=== PATIENT | male | born 1960 | race Caucasian/White ===

== ENCOUNTER 2024-02-08 10:59 | Inpatient (IN) | payer MEDICARE, OTHER ==
[~2024-02-08] VITALS: Ht 172.7 cm; Wt 70.8 kg
[2024-02-08] MEDS ORDERED: DONE10TA44 PO (11:42)
[2024-02-08] MEDS ORDERED: ESCI20TA PO (11:42)
[2024-02-08] MEDS ORDERED: ALLO300T2 PO (11:42)
[2024-02-08] MEDS ORDERED: MAGN400O6 PO (11:42)
[2024-02-08] MEDS ORDERED: ATOR40TA PO (11:42)
[2024-02-08] MEDS ORDERED: CALC355O18 PO (11:42)
[2024-02-08] MEDS ORDERED: ACET-868 PO (11:42)
[2024-02-08] MEDS ORDERED: HALO5TAB PO (11:42)
[2024-02-08] MEDS ORDERED: MULT-213 PO (11:42)
[2024-02-08] MEDS ORDERED: CETI10TA14 PO (11:42)
[2024-02-08] MEDS ORDERED: BENZ1TAB7 PO (11:42)
[2024-02-08] MEDS ORDERED: DIVA-76 PO (11:42)
[2024-02-08] MEDS ORDERED: RIVA1.5C13 PO (11:42)
[2024-02-08] MEDS ORDERED: POLY17PO4 PO (11:42)
[2024-02-08] MEDS ORDERED: ICOS1CAP PO (11:42)
[2024-02-08] MEDS: IV NS 0.9% 1,000 ML BAG IV ONE (11:45)
[2024-02-08 12:00] LABS: BASOPHILS % (AUTO) 0.5 % (0.0-2.0); EOSINOPHILS # (AUTO) 0.2 K/uL (0.0-0.7); EOSINOPHILS % (AUTO) 2.6 % (0.0-6.0); HEMATOCRIT 42 % (39-51); LYMPHOCYTES % (AUTO) 13.6 % (20.0-44.0); MEAN CORPUSCULAR HEMOGLOBIN 30 PG (26.0-33.0); MEAN CORPUSCULAR HGB CONC 34 g/dl (31.0-36.0); MEAN CORPUSCULAR VOLUME 90 fL (80-96); MONOCYTES # (AUTO) 0.6 K/uL (0.1-1.30); MONOCYTES % (AUTO) 8.6 % (2.0-12.0); NEUTROPHILS # (AUTO) 5.6 K/uL (1.8-8.9); NEUTROPHILS % (AUTO) 74.7 % (43.0-81.0); PLATELET COUNT (AUTO) 172 K/uL (150-450); RED CELL DISTRIBUTION WIDTH 13.9 % (11.5-15.0); WHITE BLOOD COUNT (AUTO) 7.5 K/uL (4.3-11.0)
[2024-02-08 12:07] LABS: INR 1.06 (0.91-1.10); PARTIAL THROMBOPLASTIN TIME 24.5 SEC (24.3-34.3); PROTHROMBIN TIME 11.2 SECS (9.2-11.1)
[2024-02-08 12:15] LABS: CALCIUM, SERUM 9.7 mg/dL (8.5-10.1); CARBON DIOXIDE 28 mmol/L (21-32); CHLORIDE 103 mmol/L (98-107); CREATININE 0.8 mg/dL (0.6-1.3); GLUCOSE 86 mg/dL (74-106); POTASSIUM 3.9 mmol/L (3.5-5.1); SODIUM SERUM 140 mmol/L (136-145); UREA NITROGEN, BLOOD 24 mg/dL (7-18)
[2024-02-08 12:19] LABS: LACTIC ACID 0.8 mmol/L (0.4-2.0)
[2024-02-08 12:20] LABS: ALANINE AMINOTRANSFERASE 26 U/L (12-78); ALBUMIN 3.6 g/dL (3.4-5.0); ALKALINE PHOSPHATASE 96 U/L (46-116); ASPARTATE AMINOTRANSFERASE 21 U/L (15-37); BILIRUBIN,DIRECT 0.2 mg/dL (0.0-0.2); BILIRUBIN,TOTAL 1.3 mg/dL (0.2-1.0); TOTAL PROTEIN, SERUM 7.5 g/dL (6.4-8.2)
[2024-02-08 12:49] LABS: APPEARANCE,URINE CLEAR (CLEAR); BILIRUBIN,URINE NEGATIVE (NEGATIVE); BLOOD, URINE 2+ Ery/uL (NEGATIVE); COLOR,URINE YELLOW (YELLOW); KETONES,URINE 1+ mg/dL (NEGATIVE); LEUKOCYTE ESTERASE ,URINE NEGATIVE (NEGATIVE); NITRITE, URINE POSITIVE (NEGATIVE); PROTEIN,URINE TRACE mg/dl (NEGATIVE); UGLUCOSE NEGATIVE (NEGATIVE)
[2024-02-08 12:53] LABS: ADD URINE CULTURE YES; BACTERIA,URINE Few /HPF (None Seen); SQUAMOUS EPITHELIAL CELL,UR Few /HPF (None Seen); URINE AMORPHOUS URATE Moderate /HPF (None Seen)
[2024-02-08] MEDS: CEFTRIAXONE 1GM BAG (ER ONLY) 1 GM/50 ML PIGGYBACK IV ONE (13:40)
[2024-02-08] MEDS ORDERED: CEFTRIAXONE 1GM BAG (ER ONLY) 50 ML IV ONE (13:43)
[2024-02-08] MEDS ORDERED: Z GUARD REMEDY 4 OZ OINT TP PRN (15:00)
[2024-02-08] MEDS ORDERED: ONDANSETRON HCL/PF 4 MG/2 ML VIAL IVP PRN (15:00)
[2024-02-08] MEDS ORDERED: ZOLPIDEM TARTRATE 5 MG TABLET PO PRN (15:00)
[2024-02-08] MEDS ORDERED: ACETAMINOPHEN 325 MG TABLET PO PRN (15:00)
[2024-02-08] MEDS ORDERED: MAG HYDROX/AL HYDROX/SIMETH 30 ML UDC PO PRN (15:00)
[2024-02-08] MEDS ORDERED: MAGNESIUM HYDROXIDE 30 ML UDC PO PRN (15:00)
[2024-02-08 18:50] VITALS: BP 131/82; TEMP 97.5; O2SAT 100
[2024-02-08] MEDS: IV NS 0.9% 1,000 ML IV PRN (19:28)
[2024-02-08] MEDS: ENOXAPARIN SODIUM 40 MG/0.4 ML DISP.SYRIN SQ SCH (19:44)
[2024-02-08 20:00] VITALS: BP 120/79; TEMP 97.3; O2SAT 100
[2024-02-09 04:00] VITALS: BP 127/90; TEMP 98.2; O2SAT 100
[2024-02-09 08:00] VITALS: BP 125/76; TEMP 98.2; O2SAT 100
[2024-02-09 08:19] LABS: BASOPHILS % (AUTO) 0.5 % (0.0-2.0); EOSINOPHILS # (AUTO) 0.2 K/uL (0.0-0.7); EOSINOPHILS % (AUTO) 2.8 % (0.0-6.0); HEMATOCRIT 38 % (39-51); HEMOGLOBIN 12.7 g/dL (13.5-17.5); LYMPHOCYTES # (AUTO) 0.9 K/uL (0.8-4.8); LYMPHOCYTES % (AUTO) 11.9 % (20.0-44.0); MEAN CORPUSCULAR HEMOGLOBIN 30 PG (26.0-33.0); MEAN CORPUSCULAR HGB CONC 34 g/dl (31.0-36.0); MEAN CORPUSCULAR VOLUME 90 fL (80-96); MONOCYTES # (AUTO) 0.5 K/uL (0.1-1.30); MONOCYTES % (AUTO) 7.1 % (2.0-12.0); NEUTROPHILS # (AUTO) 5.6 K/uL (1.8-8.9); NEUTROPHILS % (AUTO) 77.7 % (43.0-81.0); PLATELET COUNT (AUTO) 162 K/uL (150-450); RED BLOOD CELL COUNT(AUTO) 4.21 MIL/uL (4.5-6.0); RED CELL DISTRIBUTION WIDTH 14.1 % (11.5-15.0); WHITE BLOOD COUNT (AUTO) 7.2 K/uL (4.3-11.0)
[2024-02-09 08:50] LABS: CALCIUM, SERUM 9.3 mg/dL (8.5-10.1); CREATININE 0.5 mg/dL (0.6-1.3); MAGNESIUM 1.9 mg/dL (1.8-2.4); PHOSPHORUS 2.6 mg/dL (2.5-4.9); POTASSIUM 3.6 mmol/L (3.5-5.1)
[2024-02-09] MEDS ORDERED: MAGNESIUM HYDROXIDE 30 ML UDC PO PRN (13:30)
[2024-02-09] MEDS ORDERED: cetrizine 10 MG TABLET PO PRN (13:30)
[2024-02-09] MEDS ORDERED: ACETAMINOPHEN 325 MG TABLET PO PRN (13:30)
[2024-02-09] MEDS: ATORVASTATIN 40 MG TABLET PO SCH (14:45)
[2024-02-09] MEDS: BENZTROPINE MESYLATE (1 MG) 1 MG TABLET PO SCH (14:45)
[2024-02-09] MEDS: CEFTRIAXONE 1 G in IV D5W 50 ML IV SCH (14:45)
[2024-02-09 16:00] VITALS: BP 119/86; TEMP 97.9; O2SAT 100
[2024-02-09] MEDS: DIVALPROEX SODIUM 250 MG TABLET.DR PO SCH (16:28)
[2024-02-09] MEDS ORDERED: DIVALPROEX SODIUM 250 MG TABLET.DR PO SCH (17:00)
[2024-02-09] MEDS: RIVASTIGMINE TARTRATE 1.5 MG CAPSULE PO SCH (17:26)
[2024-02-09 20:00] VITALS: BP 113/82; TEMP 98.4; O2SAT 96
[2024-02-09] MEDS: HALOPERIDOL 5 MG TABLET PO SCH (21:13)
[2024-02-09] MEDS ORDERED: HALOPERIDOL 5 MG TABLET PO SCH (22:00)
[2024-02-10 04:00] VITALS: BP 138/86; TEMP 97.5; O2SAT 99
[2024-02-10 08:00] VITALS: BP 136/68; TEMP 97.6; O2SAT 99
[2024-02-10] MEDS: POLYETHYLENE GLYCOL 3350 17 GM POWD.PACK PO SCH (08:45)
[2024-02-10] MEDS: HALOPERIDOL 5 MG TABLET PO SCH (08:45)
[2024-02-10 16:00] VITALS: BP 128/91; TEMP 97.9; O2SAT 99
[2024-02-10 20:00] VITALS: BP 129/80; TEMP 99.3; O2SAT 97
[2024-02-11 04:00] VITALS: BP 129/86; TEMP 98.4; O2SAT 98
[2024-02-11 08:00] VITALS: BP 123/91; TEMP 97.9; O2SAT 98
[2024-02-11 16:00] VITALS: BP 142/95; TEMP 97.7; O2SAT 99
[2024-02-11 20:00] VITALS: BP 120/80; TEMP 98.8; O2SAT 98
[2024-02-12 04:00] VITALS: BP 128/85; TEMP 98.5; O2SAT 96
[2024-02-12 08:00] VITALS: BP 124/94; TEMP 99.8; O2SAT 98
[2024-02-12 11:30] VITALS: BP 126/84; TEMP 97.7; O2SAT 98
[2024-02-12 16:00] VITALS: BP 124/88; TEMP 97.8; O2SAT 100
[2024-02-12 20:00] VITALS: BP 120/74; TEMP 98.2; O2SAT 99
[2024-02-13 04:00] VITALS: BP 140/58; TEMP 98.6; O2SAT 100
[2024-02-13 08:00] VITALS: BP 129/90; TEMP 97.7; O2SAT 95
[2024-02-13] MEDS ORDERED: SULF1TAB48 PO (11:07)
== END 2024-02-13 15:41 | DRG 689 ==
LOC: ER 11:05 → MEDSG1 17:36
PROVIDERS: ADMIT Internal Medicine; ATTEND Internal Medicine
DX: N39.0 Urinary tract infection, site not specified (principal); G93.41 Metabolic encephalopathy; F05 Delirium due to known physiological condition; F02.80 Dementia in other diseases classified elsewhere, unspecified severity, without behavioral disturbance, psychotic disturbance, mood disturbance, and anxiety; G30.9 Alzheimer's disease, unspecified; M10.9 Gout, unspecified; M19.90 Unspecified osteoarthritis, unspecified site; E78.5 Hyperlipidemia, unspecified; E86.0 Dehydration; F29 Unspecified psychosis not due to a substance or known physiological condition; I11.9 Hypertensive heart disease without heart failure; B95.7 Other staphylococcus as the cause of diseases classified elsewhere; Z20.822 Contact with and (suspected) exposure to COVID-19
CPT/HCPCS: 36415; 70450-TC; 71045-TC; 80048-TC; 80076-TC; 80164-TC; 81001; 83605-TC; 83735-TC; 84100-TC; 84484-TC; 85025-TC; 85730-TC; 87040-TC; 87081-TC; 87086-TC; A4223; G0378; J0696; J1650; J7030; J7060